=== PATIENT | male | born 1950 | race Caucasian/White ===

== ENCOUNTER 2017-01-28 08:54 | Emergency (ER) | payer MEDICARE | END 2017-01-28 10:50 | disposition home or self-care (01) | LOC: ER1 08:54 | DX: S56.012A Strain of flexor muscle, fascia and tendon of left thumb at forearm level, initial encounter (principal); I10 Essential (primary) hypertension; Z79.899 Other long term (current) drug therapy; W19.XXXA Unspecified fall, initial encounter | CPT/HCPCS: 29125; 73130; 99283 ==